=== PATIENT | female | born 1955 | race African-American/Black ===

== ENCOUNTER 2020-04-19 23:05 | Emergency (ER) | payer MEDICARE, MEDICAID ==
[~2020-04-19] VITALS: Ht 162.6 cm; Wt 63.5 kg
[2020-04-20 02:25] VITALS: BP 115/83
[2020-04-20 03:29] LABS: CLARITY URINE CLEAR (CLEAR); COLOR URINE YELLOW (YELLOW); KETONES URINE NEGATIVE (NEGATIVE); LEUKOCYTE ESTERASE URINE NEGATIVE (NEGATIVE); NITRITE URINE NEGATIVE (NEGATIVE); OCCULT BLOOD URINE NEGATIVE (NEGATIVE); PROTEIN URINE 3+ (NEGATIVE); SPECIFIC GRAVITY URINE 1.028 (1.005-1.030)
== END 2020-04-20 03:35 | disposition left against medical advice (07) ==
LOC: ER 23:05
DX: M54.5 Low back pain (principal); I50.9 Heart failure, unspecified; I11.0 Hypertensive heart disease with heart failure; J44.9 Chronic obstructive pulmonary disease, unspecified
CPT/HCPCS: 81003; 99283

== ENCOUNTER 2022-11-05 23:50 | Inpatient (IN) | payer MEDICARE, MEDICAID ==
[~2022-11-05] VITALS: Ht 162.6 cm; Wt 69.9 kg
[2022-11-05] MEDS ORDERED: METHYLPREDNISOLONE SOD SUCC 125MG/2ML (ACT-O-VIAL) IV STA (23:57)
[2022-11-05] MEDS ORDERED: IPRATROPIUM BROMIDE (0.02%) 0.5MG/2.5ML NEB HHN STA (23:57)
[2022-11-05] MEDS ORDERED: ALBUTEROL (0.083%) 2.5MG/3ML NEB HHN STA (23:57)
[2022-11-06 00:12] VITALS: PULSE 69; RESP 18; O2SAT 98
[2022-11-06] MEDS ORDERED: MORPHINE SULFATE 4 MG/ML CPJ (NOT FOR IM USE) IV ONE ×2 (00:30→02:15)
[2022-11-06] MEDS ORDERED: ASPIRIN 325MG TABLET PO ONE (00:30)
[2022-11-06 01:54] LABS: BASOPHILS % 1.2 % (0.0-2.0); EOSINOPHILS % 0.6 % (0.0-5.0); LYMPHOCYTES % 22.1 % (20.0-50.0); MEAN CORPUSCULAR HEMOGLOBIN 32.3 pg (28.0-32.0); MEAN CORPUSCULAR HGB CONC 32.3 g/dL (31.0-37.0); MEAN PLATELET VOLUME 7.5 fl (7.4-10.4); MONOCYTES % 9.2 % (2.0-8.0); NEUTROPHILS % 66.9 % (40.0-76.0); PLATELET 284 x1000/uL (130-400); RED CELL DISTRIBUTION WIDTH 16.2 % (11.6-14.6); WHITE BLOOD COUNT 8.6 x1000/uL (4.5-11.0)
[2022-11-06 01:59] LABS: CHLORIDE 109 mEq/L (98-107); INDEX HEMOLYSI 1 (1-3); INDEX ICTERIC 1 (1-4); INDEX LIPEMIC 1 (1-3); POTASSIUM 3.9 mEq/L (3.5-5.1); SODIUM 139 mEq/L (136-145)
[2022-11-06 02:11] LABS: ALANINE AMINOTRANSFERASE 30 IU/L (13-61); ALBUMIN 3.6 g/dL (3.4-5.0); ASPARTATE AMINOTRANSFERASE 27 IU/L (15-37); BILIRUBIN TOTAL 0.7 mg/dL (0.1-1.0); CALCIUM 8.9 mg/dL (8.5-10.1); CARBON DIOXIDE 24 mEq/L (21-32); GLUCOSE 102 mg/dL (70-105); NT PRO B-TYPE NATRIURETIC PEP 18343 pg/mL (5-125); PROTEIN TOTAL 7.5 g/dL (6.0-8.3); UREA NITROGEN BLOOD 46 mg/dL (7-21)
[2022-11-06 02:14] LABS: TROPONIN I HIGH SENSITIVITY 610 ng/L (<54)
[2022-11-06] MEDS ORDERED: MORPHINE SULFATE 4 MG/ML CPJ (NOT FOR IM USE) IV NR (02:15)
[2022-11-06] MEDS ORDERED: ASPIRIN 325MG TABLET PO NR (02:15)
[2022-11-06] MEDS ORDERED: ACETAMINOPHEN 325MG TABLET PO PRN ×2 (06:15)
[2022-11-06] MEDS ORDERED: ENOXAPARIN 40MG/0.4ML SYR SUBCUT SCH (06:15)
[2022-11-06] MEDS ORDERED: LORAZEPAM 0.5MG TABLET PO PRN (06:15)
[2022-11-06] MEDS ORDERED: GUAIFENESIN 200MG/10ML SUGAR FREE UDC PO PRN (06:15)
[2022-11-06] MEDS ORDERED: IPRATROPIUM/ALBUTEROL 0.5-3(2.5)MG/3ML NEB HHN PRN (06:15)
[2022-11-06] MEDS ORDERED: ZOLPIDEM TARTRATE 5MG TABLET PO PRN (06:15)
[2022-11-06] MEDS ORDERED: DOCUSATE SODIUM 100MG CAPSULE PO PRN (06:15)
[2022-11-06] MEDS ORDERED: CLONIDINE 0.1MG TABLET PO PRN ×2 (06:15→19:15)
[2022-11-06] MEDS ORDERED: ONDANSETRON HCL 4MG/2ML INJ IV PRN ×2 (06:15→19:15)
[2022-11-06] MEDS: METHYLPREDNISOLONE SOD SUCC 40MG/ML (ACT-O-VIAL) IV SCH ×3 (06:30→20:30)
[2022-11-06] MEDS ORDERED: ENOXAPARIN 80MG/0.8ML SYR SUBCUT NR (07:00)
[2022-11-06 07:03] LABS: T4 FREE 0.69 ng/dL (0.76-1.46)
[2022-11-06 07:18] LABS: FOLIC ACID (FOLATE) SERUM 18.3 ng/mL (>5.38)
[2022-11-06] MEDS: FUROSEMIDE 40MG/4ML VIAL IVP SCH (09:00)
[2022-11-06] MEDS: BUDESONIDE 0.5MG/2ML NEB HHN SCH ×2 (09:18→11:40)
[2022-11-06] MEDS: IPRATROPIUM/ALBUTEROL 0.5-3(2.5)MG/3ML NEB HHN SCH ×2 (09:20→12:28)
[2022-11-06] MEDS ORDERED: NALOXONE HCL 0.4MG/ML VIAL IV PRN (11:15)
[2022-11-06 11:40] VITALS: PULSE 75; RESP 20; O2SAT 96
[2022-11-06] MEDS: MORPHINE SULFATE 2 MG/ML CPJ (NOT FOR IM USE) IV PRN (11:40)
[2022-11-06] MEDS ORDERED: LISI2.5T47 PO (19:07)
[2022-11-06] MEDS ORDERED: CARV3.1242 PO (19:07)
[2022-11-06] MEDS ORDERED: METO2.5T2 PO (19:07)
[2022-11-06] MEDS ORDERED: LEVO50TA8 PO (19:07)
[2022-11-06 20:00] VITALS: BP 134/78; PULSE 108; RESP 18; TEMP 97.8
[2022-11-06] MEDS: ENOXAPARIN 40MG/0.4ML SYR SUBCUT SCH (20:00)
[2022-11-07] MEDS ORDERED: FUROSEMIDE 40MG/4ML VIAL IVP SCH (06:00)
[2022-11-07] MEDS: METHYLPREDNISOLONE SOD SUCC 125MG VIAL IV SCH ×3 (06:30→21:43)
[2022-11-07] MEDS: LEVOTHYROXINE SODIUM 50MCG TABLET PO SCH (07:10)
[2022-11-07 08:00] VITALS: BP 135/101; PULSE 77; RESP 20; TEMP 97
[2022-11-07] MEDS: FUROSEMIDE 40MG/4ML VIAL IVP SCH ×2 (09:00→17:00)
[2022-11-07] MEDS: LISINOPRIL 2.5MG TABLET PO SCH (09:12)
[2022-11-07] MEDS: METOLAZONE 2.5MG TABLET PO SCH (09:13)
[2022-11-07] MEDS: CARVEDILOL 3.125 MG TABLET PO SCH ×2 (09:14→21:42)
[2022-11-07 12:00] VITALS: BP 120/98; PULSE 68; RESP 22; TEMP 97.1
[2022-11-07 15:12] LABS: CHLORIDE 108 mEq/L (98-107); INDEX HEMOLYSI 1 (1-3); INDEX ICTERIC 1 (1-4); INDEX LIPEMIC 1 (1-3); POTASSIUM 4.5 mEq/L (3.5-5.1); SODIUM 137 mEq/L (136-145)
[2022-11-07 15:26] LABS: CALCIUM 9.4 mg/dL (8.5-10.1); CARBON DIOXIDE 23 mEq/L (21-32); CREATINE KINASE 45 IU/L (26-192); CREATINE KINASE MB FRACTION 1.8 ng/mL (0.5-3.6); GLUCOSE 122 mg/dL (70-105); UREA NITROGEN BLOOD 57 mg/dL (7-21)
[2022-11-07 15:33] LABS: BASOPHILS % 0.2 % (0.0-2.0); DIFFERENTIAL COMMENT 0; EOSINOPHILS % 0.2 % (0.0-5.0); HEMATOCRIT. 34.6 % (36.0-48.0); HEMOGLOBIN. 11.5 g/dL (12.0-16.0); LYMPHOCYTES % 10.1 % (20.0-50.0); MEAN CORPUSCULAR HEMOGLOBIN 33.6 pg (28.0-32.0); MEAN CORPUSCULAR HGB CONC 33.1 g/dL (31.0-37.0); MEAN CORPUSCULAR VOLUME 101.5 fL (81.0-99.0); MEAN PLATELET VOLUME 8.2 fl (7.4-10.4); MONOCYTES % 8.8 % (2.0-8.0); NEUTROPHILS % 80.7 % (40.0-76.0); PLATELET 280 x1000/uL (130-400); RED BLOOD CELL COUNT 3.41 mill/uL (4.2-5.4); RED CELL DISTRIBUTION WIDTH 15.9 % (11.6-14.6); WHITE BLOOD COUNT 10.6 x1000/uL (4.5-11.0)
[2022-11-07] MEDS: IPRATROPIUM/ALBUTEROL 0.5-3(2.5)MG/3ML NEB HHN SCH ×2 (15:54→21:03)
[2022-11-07 15:55] VITALS: PULSE 80; RESP 18; O2SAT 97
[2022-11-07 16:00] VITALS: BP 144/97; PULSE 81; RESP 18; TEMP 97.5
[2022-11-07 16:15] LABS: TROPONIN I HIGH SENSITIVITY 530 ng/L (<54)
[2022-11-07] MEDS: MORPHINE SULFATE 2 MG/ML CPJ (NOT FOR IM USE) IV PRN (17:16)
[2022-11-07] MEDS: ENOXAPARIN 40MG/0.4ML SYR SUBCUT SCH (20:00)
[2022-11-07] MEDS: BUDESONIDE 0.5MG/2ML NEB HHN SCH (21:03)
[2022-11-08] VITALS (9 sets, daily range): BP systolic 142–149; BP diastolic 93–100; PULSE 68–86; RESP 15–20; TEMP 97.1–97.7; O2SAT 95–98
[2022-11-08] MEDS: IPRATROPIUM/ALBUTEROL 0.5-3(2.5)MG/3ML NEB HHN SCH ×6 (01:02→21:09)
[2022-11-08] MEDS: METHYLPREDNISOLONE SOD SUCC 125MG VIAL IV SCH ×3 (06:30→22:30)
[2022-11-08] MEDS: LEVOTHYROXINE SODIUM 50MCG TABLET PO SCH (07:23)
[2022-11-08] MEDS: BUDESONIDE 0.5MG/2ML NEB HHN SCH ×2 (08:17→21:09)
[2022-11-08] MEDS: FUROSEMIDE 40MG/4ML VIAL IVP SCH ×2 (09:00→16:54)
[2022-11-08] MEDS: CARVEDILOL 3.125 MG TABLET PO SCH ×2 (09:04→20:40)
[2022-11-08] MEDS: METOLAZONE 2.5MG TABLET PO SCH (09:04)
[2022-11-08] MEDS: ASPIRIN 81MG EC TABLET PO SCH (09:05)
[2022-11-08] MEDS: LISINOPRIL 2.5MG TABLET PO SCH (09:05)
[2022-11-08 16:53] LABS: BASOPHILS % 0.2 % (0.0-2.0); DIFFERENTIAL COMMENT 0; HEMATOCRIT. 35.5 % (36.0-48.0); HEMOGLOBIN. 11.5 g/dL (12.0-16.0); LYMPHOCYTES % 9.6 % (20.0-50.0); MEAN CORPUSCULAR HEMOGLOBIN 32.4 pg (28.0-32.0); MEAN CORPUSCULAR HGB CONC 32.3 g/dL (31.0-37.0); MEAN CORPUSCULAR VOLUME 100.5 fL (81.0-99.0); MEAN PLATELET VOLUME 8.6 fl (7.4-10.4); NEUTROPHILS % 85.2 % (40.0-76.0); PLATELET 295 x1000/uL (130-400); RED BLOOD CELL COUNT 3.53 mill/uL (4.2-5.4); RED CELL DISTRIBUTION WIDTH 16.5 % (11.6-14.6); WHITE BLOOD COUNT 7.5 x1000/uL (4.5-11.0)
[2022-11-08 17:10] LABS: POTASSIUM 4.7 mEq/L (3.5-5.1)
[2022-11-08 17:22] LABS: CALCIUM 8.7 mg/dL (8.5-10.1); CREATININE 1.1 mg/dL (0.6-1.3)
[2022-11-08] MEDS: ENOXAPARIN 40MG/0.4ML SYR SUBCUT SCH (20:00)
[2022-11-08] MEDS ORDERED: ACETAMINOPHEN 325MG TABLET PO PRN (21:00)
[2022-11-08] MEDS ORDERED: ATORVASTATIN CALCIUM 10MG TABLET PO SCH (21:00)
[2022-11-09] VITALS: BP 144/98; PULSE 82; RESP 18; TEMP 97.5
[2022-11-09] MEDS: IPRATROPIUM/ALBUTEROL 0.5-3(2.5)MG/3ML NEB HHN SCH ×3 (04:00→07:55)
[2022-11-09 04:13] VITALS: BP 142/96; PULSE 82; RESP 18; TEMP 97.8
[2022-11-09] MEDS: LEVOTHYROXINE SODIUM 50MCG TABLET PO SCH (05:46)
[2022-11-09] MEDS: METHYLPREDNISOLONE SOD SUCC 125MG VIAL IV SCH (05:51)
[2022-11-09] MEDS: BUDESONIDE 0.5MG/2ML NEB HHN SCH (07:55)
[2022-11-09] MEDS: LISINOPRIL 2.5MG TABLET PO SCH (08:35)
[2022-11-09] MEDS: ASPIRIN 81MG EC TABLET PO SCH (08:35)
[2022-11-09] MEDS: METOLAZONE 2.5MG TABLET PO SCH (08:35)
[2022-11-09] MEDS: FUROSEMIDE 40MG/4ML VIAL IVP SCH (08:35)
[2022-11-09] MEDS: CARVEDILOL 3.125 MG TABLET PO SCH (08:35)
[2022-11-09 10:12] VITALS: BP 125/72; PULSE 74; TEMP 98; O2SAT 98
== END 2022-11-09 10:23 | disposition home or self-care (01) | DRG 291 ==
LOC: ER 23:50 → EDBEDREQ 11-06 05:13 → EDBEDREQTM 11-06 05:13 → 8WST 11-06 06:36 → EDBEDREQ 11-06 06:38 → EDBEDREQTM 11-06 06:38
PROVIDERS: ADMIT Internal Medicine; ATTEND Internal Medicine
DX: I11.0 Hypertensive heart disease with heart failure (principal); I50.21 Acute systolic (congestive) heart failure; J96.90 Respiratory failure, unspecified, unspecified whether with hypoxia or hypercapnia; J44.1 Chronic obstructive pulmonary disease with (acute) exacerbation; I47.20 Ventricular tachycardia, unspecified; E44.1 Mild protein-calorie malnutrition; R55 Syncope and collapse; I42.0 Dilated cardiomyopathy; I44.7 Left bundle-branch block, unspecified; M48.061 Spinal stenosis, lumbar region without neurogenic claudication; F31.9 Bipolar disorder, unspecified; F17.210 Nicotine dependence, cigarettes, uncomplicated; I71.23 Aneurysm of the descending thoracic aorta, without rupture; Z53.29 Procedure and treatment not carried out because of patient's decision for other reasons; N28.9 Disorder of kidney and ureter, unspecified; I27.21 Secondary pulmonary arterial hypertension; F19.10 Other psychoactive substance abuse, uncomplicated; I08.3 Combined rheumatic disorders of mitral, aortic and tricuspid valves; R07.9 Chest pain, unspecified; E78.5 Hyperlipidemia, unspecified; E03.9 Hypothyroidism, unspecified; F20.9 Schizophrenia, unspecified; Z79.899 Other long term (current) drug therapy; Z59.00 Homelessness unspecified; Z76.5 Malingerer [conscious simulation]; Z85.528 Personal history of other malignant neoplasm of kidney; Z91.199 Patient's noncompliance with other medical treatment and regimen due to unspecified reason; Z68.26 Body mass index [BMI] 26.0-26.9, adult
CPT/HCPCS: 36415; 71045; 80048; 80053; 80061; 80307; 82550; 82553; 82607; 82746; 83735; 83880; 84439; 84443; 84484; 85025; 86850; 86900; 93880; 94640; 97162; 97166; 99291; J1650; J1940; J2270; J2920; J2930; J7626

== ENCOUNTER 2023-02-08 17:33 | Emergency (ER) | payer MEDICARE, MEDICAID ==
[~2023-02-08] VITALS: Ht 167.6 cm; Wt 70.0 kg
[~2023-02-08 17:33] MED LIST: ASPI-1406 PO; ATOR40TA70 PO; CARV3.1242 PO; CLOP75TA33 PO; FURO40TA5 PO; LEVO150T8 PO; LISI2.5T47 PO; METO2.5T2 PO; SACU1TAB PO; SPIR25TA6 PO
[2023-02-08 17:39] VITALS: BP 154/100; PULSE 71; RESP 18; TEMP 98.6; O2SAT 98
[2023-02-08] MEDS ORDERED: ASPIRIN 81MG TABLET PO ONE (18:15)
[2023-02-08] MEDS ORDERED: FUROSEMIDE 40MG/4ML VIAL IV ONE (18:15)
== END 2023-02-08 18:32 | disposition left against medical advice (07) ==
LOC: ER 17:33
DX: R06.02 Shortness of breath (principal); R07.9 Chest pain, unspecified; I11.0 Hypertensive heart disease with heart failure; I50.9 Heart failure, unspecified; J44.9 Chronic obstructive pulmonary disease, unspecified; E03.9 Hypothyroidism, unspecified
CPT/HCPCS: 93005; 99283

== ENCOUNTER 2023-07-04 21:44 | Inpatient (IN) | payer MEDICARE, MEDICAID ==
[~2023-07-04] VITALS: Ht 160 cm; Wt 64.4 kg
[~2023-07-04 21:44] MED LIST changes: +IPRA3AMP9 HHN; -LISI2.5T47 PO; +PULM50 HHN
[2023-07-04 23:34] LABS: BASOPHILS % 1.3 % (0.0-2.0); EOSINOPHILS % 0.8 % (0.0-5.0); HEMATOCRIT. 40.7 % (36.0-48.0); LYMPHOCYTES % 17.6 % (20.0-50.0); MEAN CORPUSCULAR HEMOGLOBIN 31.2 pg (28.0-32.0); MEAN CORPUSCULAR HGB CONC 31.9 g/dL (31.0-37.0); MEAN CORPUSCULAR VOLUME 97.7 fL (81.0-99.0); MEAN PLATELET VOLUME 8.7 fl (7.4-10.4); MONOCYTES % 6.2 % (2.0-8.0); NEUTROPHILS % 74.1 % (40.0-76.0); PLATELET 301 x1000/uL (130-400); RED BLOOD CELL COUNT 4.17 mill/uL (4.2-5.4); RED CELL DISTRIBUTION WIDTH 19.1 % (11.6-14.6); WHITE BLOOD COUNT 5.7 x1000/uL (4.5-11.0)
[2023-07-04 23:42] LABS: INR 1.3; PARTIAL THROMBOPLASTIN TIME 30.8 sec (23.4-31.0); PROTHROMBIN TIME 13.9 sec (9.6-11.0)
[2023-07-04 23:53] LABS: ALANINE AMINOTRANSFERASE 23 IU/L (10-49); ALBUMIN 4.1 g/dL (3.2-4.8); ASPARTATE AMINOTRANSFERASE 38 IU/L (<34); BILIRUBIN TOTAL 1.4 mg/dL (0.1-1.0); CARBON DIOXIDE 27 mEq/L (21-32); CHLORIDE 105 mEq/L (98-107); CREATININE 1.4 mg/dL (0.6-1.0); ETHANOL BLOOD < 10 mg/dL (<10); GLUCOSE 85 mg/dL (70-105); PROTEIN TOTAL 6.8 g/dL (6.0-8.3); SODIUM 140 mEq/L (136-145); UREA NITROGEN BLOOD 52 mg/dL (9-23)
[2023-07-05] VITALS (7 sets, daily range): BP systolic 130–143; BP diastolic 71–93; PULSE 61–72; RESP 18–29; TEMP 97.5–97.7
[2023-07-05 00:03] LABS: TROPONIN I HIGH SENSITIVITY 299 ng/L (3.0-34)
[2023-07-05] MEDS: FUROSEMIDE 40MG/4ML VIAL IVP NR (00:52)
[2023-07-05] MEDS: ASPIRIN 325MG EC TABLET PO NR (00:52)
[2023-07-05] MEDS: CLOPIDOGREL 75MG TABLET PO NR (00:52)
[2023-07-05] MEDS ORDERED: ONDANSETRON HCL 4MG/2ML INJ IV PRN (07:15)
[2023-07-05] MEDS ORDERED: ACETAMINOPHEN WITH CODEINE 300/30MG TABLET PO PRN (07:15)
[2023-07-05] MEDS: FUROSEMIDE 40MG/4ML VIAL IVP SCH (09:11)
[2023-07-05] MEDS: SPIRONOLACTONE 25MG TABLET PO SCH (09:12)
[2023-07-05] MEDS: ASPIRIN 81MG TABLET PO SCH (09:12)
[2023-07-05] MEDS: CLOPIDOGREL 75MG TABLET PO SCH (09:12)
[2023-07-05] MEDS: LEVOTHYROXINE SODIUM 150MCG TABLET PO SCH (09:13)
[2023-07-05] MEDS: CARVEDILOL 3.125 MG TABLET PO SCH (09:13)
[2023-07-05] MEDS: METOLAZONE 2.5MG TABLET PO NR (13:22)
[2023-07-05] MEDS: KETOROLAC 15MG/ML VIAL IV NR (13:26)
[2023-07-05] MEDS: FUROSEMIDE 100MG/10ML VIAL IVP SCH (17:00)
[2023-07-05] MEDS: ENOXAPARIN 40MG/0.4ML SYR SUBCUT SCH (17:00)
[2023-07-05] MEDS: ATORVASTATIN CALCIUM 40MG TABLET PO SCH (21:00)
[2023-07-05 22:21] LABS: CLARITY URINE CLEAR (CLEAR); COLOR URINE YELLOW (YELLOW); GLUCOSE URINE NEGATIVE (NEGATIVE); KETONES URINE NEGATIVE (NEGATIVE); LEUKOCYTE ESTERASE URINE TRACE (NEGATIVE); NITRITE URINE NEGATIVE (NEGATIVE); OCCULT BLOOD URINE NEGATIVE (NEGATIVE); PH URINE 5.5 (4.5-8.0); PROTEIN URINE 1+ (NEGATIVE); SPECIFIC GRAVITY URINE 1.013 (1.005-1.030); UROBILINOGEN URINE 0.2 E.U./dL (0.2-1.0)
[2023-07-05 22:35] LABS: BACTERIA URINE 1+; RBC URINE 0-2 /hpf (0-2); SQUAMOUS EPITHELIAL CELL URINE FEW /lpf (RARE/1+); WBC URINE 0-2 /hpf (0-2)
[2023-07-06] VITALS (10 sets, daily range): BP systolic 120–156; BP diastolic 76–88; PULSE 51–96; RESP 0–22; TEMP 97; O2SAT 97–98
[2023-07-06] MEDS: POTASSIUM CHLORIDE 20MEQ TABLET SR PO SCH (09:09)
[2023-07-06] MEDS: IPRATROPIUM/ALBUTEROL 0.5-3(2.5)MG/3ML NEB HHN SCH (09:38)
[2023-07-06] MEDS: METOLAZONE 2.5MG TABLET PO NR (10:00)
[2023-07-06] MEDS: LORAZEPAM 1MG TABLET PO PRN (22:00)
[2023-07-07] VITALS: BP 117/82; PULSE 66; RESP 20; TEMP 97.3
[2023-07-07 04:00] VITALS: BP 127/100; PULSE 76; RESP 27; TEMP 98
[2023-07-07] MEDS ORDERED: METO2.5T2 PO (08:14)
[2023-07-07] MEDS ORDERED: POTA-205 MT (08:14)
[2023-07-07] MEDS ORDERED: FURO40TA5 PO (08:14)
[2023-07-07 09:15] VITALS: BP 136/93; PULSE 72; RESP 31
[2023-07-07 10:36] VITALS: PULSE 76
[2023-07-07] MEDS ORDERED: ALBU18HF2 IH (11:24)
[2023-07-07] MEDS ORDERED: SACU1TAB MT (11:24)
[2023-07-07] MEDS ORDERED: ASPI-1406 MT (11:24)
[2023-07-07] MEDS ORDERED: SYN150 MT (11:24)
[2023-07-07] MEDS ORDERED: LIP40 MT (11:24)
[2023-07-07] MEDS ORDERED: CLOP-31 MT (11:24)
[2023-07-07] MEDS ORDERED: FLUT1DIS3 INH (11:24)
[2023-07-07] MEDS ORDERED: CARV3.1242 MT (11:24)
[2023-07-08] MEDS ORDERED: CEPH500C2 MT (03:15)
== END 2023-07-07 13:45 | disposition home or self-care (01) | DRG 194 ==
LOC: ER 21:44 → EDBEDREQ 07-05 01:38 → EDBEDREQTM 07-05 01:38 → 5EST 07-05 05:49
PROVIDERS: ADMIT Internal Medicine; ATTEND Internal Medicine
DX: I13.2 Hypertensive heart and chronic kidney disease with heart failure and with stage 5 chronic kidney disease, or end stage renal disease (principal); N17.0 Acute kidney failure with tubular necrosis; N18.6 End stage renal disease; I50.43 Acute on chronic combined systolic (congestive) and diastolic (congestive) heart failure; J44.9 Chronic obstructive pulmonary disease, unspecified; E03.9 Hypothyroidism, unspecified; F41.0 Panic disorder [episodic paroxysmal anxiety]; F17.210 Nicotine dependence, cigarettes, uncomplicated
CPT/HCPCS: 36415; 71045; 80053; 80320; 81003; 83605; 83880; 84484; 85025; 93005; 93970; 94640; 99285; J1650; J1885; J1940; G0480

== ENCOUNTER 2023-07-07 22:40 | Emergency (ER) | payer MEDICARE, MEDICAID ==
[~2023-07-07] VITALS: Ht 160 cm; Wt 83.0 kg
[~2023-07-07 22:40] MED LIST changes: +ALBU18HF2 IH; +ASPI-1406 MT; +CARV3.1242 MT; +CLOP-31 MT; +FLUT1DIS3 INH; +LIP40 MT; +POTA-205 MT; +SACU1TAB MT; +SYN150 MT
[2023-07-07 22:43] VITALS: O2SAT 98
[2023-07-07 23:24] VITALS: TEMP 98.5
[2023-07-07] MEDS: ONDANSETRON HCL 4MG/2ML INJ IV STA (23:25)
[2023-07-07] MEDS: MORPHINE SULFATE 4 MG/ML INJ (FOR IV/IM USE) IV STA (23:25)
[2023-07-07] MEDS: CEFTRIAXONE 1GM/50ML 50 ML IV ONE (23:30)
[2023-07-08 00:38] LABS: HEMATOCRIT. 41.1 % (36.0-48.0); HEMOGLOBIN. 13.4 g/dL (12.0-16.0); MEAN CORPUSCULAR HEMOGLOBIN 32.3 pg (28.0-32.0); MEAN CORPUSCULAR HGB CONC 32.5 g/dL (31.0-37.0); MEAN CORPUSCULAR VOLUME 99.2 fL (81.0-99.0); MEAN PLATELET VOLUME 9.1 fl (7.4-10.4); PLATELET 288 x1000/uL (130-400); RED BLOOD CELL COUNT 4.15 mill/uL (4.2-5.4); RED CELL DISTRIBUTION WIDTH 18.8 % (11.6-14.6); WHITE BLOOD COUNT 10.8 x1000/uL (4.5-11.0)
[2023-07-08 00:41] LABS: DIFFERENTIAL COMMENT 1
[2023-07-08 01:04] LABS: ALANINE AMINOTRANSFERASE 23 IU/L (10-49); ALBUMIN 4.4 g/dL (3.2-4.8); ASPARTATE AMINOTRANSFERASE 43 IU/L (<34); BILIRUBIN TOTAL 2.5 mg/dL (0.1-1.0); CALCIUM 9.4 mg/dL (8.7-10.4); CARBON DIOXIDE 27 mEq/L (21-32); CHLORIDE 102 mEq/L (98-107); CREATININE 1.5 mg/dL (0.6-1.0); GLUCOSE 89 mg/dL (70-105); POTASSIUM 5.4 mEq/L (3.5-5.1); PROTEIN TOTAL 7.8 g/dL (6.0-8.3); SODIUM 139 mEq/L (136-145); UREA NITROGEN BLOOD 49 mg/dL (9-23)
[2023-07-08 01:18] LABS: PLATELET ESTIMATE NORMAL
[2023-07-08 02:33] VITALS: BP 135/80; PULSE 68; RESP 18
[2023-07-08] MEDS: VANCOMYCIN 1G PREMIX 200 ML IV ONE (03:00)
[2023-07-08] MEDS ORDERED: CEPH500C2 MT (03:15)
[2023-07-13] MEDS ORDERED: ASPI-1406 PO (11:11)
[2023-07-13] MEDS ORDERED: FURO-151 PO (11:11)
[2023-07-13] MEDS ORDERED: LIP40 PO (11:11)
[2023-07-13] MEDS ORDERED: SPIR25TA PO (11:11)
[2023-07-13] MEDS ORDERED: SYN150 PO (11:11)
[2023-07-13] MEDS ORDERED: COR3 PO (11:11)
[2023-07-13] MEDS ORDERED: CLOP-31 PO (11:11)
== END 2023-07-08 04:33 | disposition home or self-care (01) ==
LOC: ER 22:40
DX: L03.116 Cellulitis of left lower limb (principal); L03.115 Cellulitis of right lower limb; J44.9 Chronic obstructive pulmonary disease, unspecified; I11.0 Hypertensive heart disease with heart failure; I50.9 Heart failure, unspecified; E03.9 Hypothyroidism, unspecified
CPT/HCPCS: 99284; 96365; 96366; 96375; J0696; J2405; J3370; J2270; 36415; 80053; 83605; 85025; 96367